=== PATIENT | female | born 1985 | race African-American/Black ===

== ENCOUNTER 2016-03-09 12:46 | Emergency (ER) | payer OTHER ==
[~2016-03-09] VITALS: Ht 154.9 cm; Wt 95.5 kg
[~2016-03-09 12:46] MED LIST: DEPRESSION MED; IBUPROFEN800 MG PO; MACRODANTIN100 MG PO; PERCOCET 5/31 TABLET PO; PROVERA,CYCRIN10 MG PO; SERTRALINE HCL25 MG
[2016-03-09 12:53] VITALS: BP 110/66
[2016-03-09] MEDS ORDERED: NAPROSYN500 MG PO (14:36)
== END 2016-03-09 14:59 | disposition home or self-care (01) ==
LOC: EME 12:46
DX: S06.0X0A Concussion without loss of consciousness, initial encounter (principal); S00.83XA Contusion of other part of head, initial encounter; Y00.XXXA Assault by blunt object, initial encounter; Y07.9 Unspecified perpetrator of maltreatment and neglect; Z87.891 Personal history of nicotine dependence
CPT/HCPCS: 70450; 99281; 99284

== ENCOUNTER 2016-06-01 16:01 | Emergency (ER) | payer OTHER ==
[~2016-06-01] VITALS: Ht 154.9 cm; Wt 91.5 kg
[~2016-06-01 16:01] MED LIST changes: +NAPROSYN500 MG PO
[2016-06-01 16:42] LABS: HEMATOCRIT 33.7 % (36.0-46.0); MCH 25.2 PG (29.0-34.0); MCHC 31.5 G/DL (30.0-36.0); MEAN PLAT.VOLUME 9.2 uM^3 (9.5-12.4); PLATELET COUNT 327 K/uL (156-360); RBC DIS.WIDTH-CV 14.6 % (11.8-14.6); RBC DIS.WIDTH-SD 42.4 % (39-53); RED BLOOD COUNT 4.21 M/uL (3.80-5.20); WHITE BLOOD COUNT 4.3 K/uL (4.1-10.2)
[2016-06-01 16:50] LABS: CHLORIDE 111 mEq/L (99-109); POTASSIUM 3.6 mEq/L (3.7-5.4); SODIUM 142 mEq/L (136-147)
[2016-06-01 16:53] LABS: GLUCOSE 93 mg/dL (70-99)
[2016-06-01 16:54] LABS: ANION GAP 6 MEQ/L (2-14)
[2016-06-01 16:55] LABS: TOTAL BILIRUBIN 0.2 mg/dL (0.0-1.0)
[2016-06-01 16:56] LABS: ALKALINE PHOSPHATASE 49 IU/L (3-129); GFR ESTIMATE (CALCULATED) > 59 mL/min/
[2016-06-01 16:57] LABS: UREA NITROGEN (BUN) 13 mg/dL (9-23)
[2016-06-01 17:08] LABS: ADD MIUA? YES; BILIRUBIN NEGATIVE; BLOOD NEGATIVE; COLOR YELLOW ((YELLOW)); GLUCOSE (STRIP) NEGATIVE; KETONES 5; LEUKOCYTES NEGATIVE; NITRITE NEGATIVE; PROTEIN (STRIP) 30; SPECIFIC GRAVITY 1.028 (1.000-1.030)
[2016-06-01 17:09] LABS: QUANTITATIVE HCG < 4.0 MIU/ML
[2016-06-01 17:36] LABS: BACTERIA RARE /HPF; EPITHELIAL CELLS 2+ /HPF; MUCUS 3+ /LPF; UCUL ADDED? NO; WHITE BLOOD CELLS 0-5 /HPF (0-5)
[2016-06-01] MEDS ORDERED: PERCOCET 5/31 TABLET PO (21:21)
[2016-06-01] MEDS ORDERED: ZOFRAN ODT4 MG PO (21:21)
[2016-06-01 21:30] VITALS: BP 118/76
== END 2016-06-01 21:27 | disposition home or self-care (01) ==
LOC: EME 16:01
DX: R10.31 Right lower quadrant pain (principal); R10.2 Pelvic and perineal pain; R11.0 Nausea; Z87.891 Personal history of nicotine dependence
CPT/HCPCS: 74176; 80053; 81003; 84702; 85027; 99281; 99284; J1885